=== PATIENT | male | born 1955 | race Caucasian/White ===

== ENCOUNTER → 2016-09-24 | Outpatient (REF) | payer BC ==
[2016-09-24 14:42] LABS: BASOPHILS % (AUTO) 0 % (0-2); EOSINOPHILS # (AUTO) 0.1 10^3uL; EOSINOPHILS % (AUTO) 2 % (0-4); LYMPHOCYTES # (AUTO) 2.1 X10^3; MEAN CORPUSCULAR HGB CONC 34.7 g/dL (31.0-37.0); MEAN CORPUSCULAR VOLUME 96 FL (80-100); MEAN PLATELET VOLUME 11.1 FL (6.0-9.5); MONOCYTES # (AUTO) 0.5 X10^3; MONOCYTES % (AUTO) 8 % (3-11); NEUTROPHILS # (AUTO) 3.2 X10^3; NEUTROPHILS % (AUTO) 54 % (51-67); PLATELET COUNT 91 10^3uL (150-450); WHITE BLOOD COUNT 5.89 10^3uL (4.0-11.0)
[2016-09-24 14:56] LABS: MEAN CORPUSCULAR HEMOGLOBIN 33.3 PG (26.0-34.0)
[2016-09-24 15:00] LABS: ALBUMIN 4.2 g/dL (3.4-5.0); ANION GAP 14.2 MEQ/L (3-15); CALCULATED IONIZED CALCIUM 3.7 mg/dL (3.8-4.6); TOTAL PROTEIN 7.9 g/dL (6.4-8.5)
== END ==
LOC: LAB 14:24
PROVIDERS: ATTEND Family Medicine
DX: R79.89 Other specified abnormal findings of blood chemistry (principal); D69.59 Other secondary thrombocytopenia; B18.2 Chronic viral hepatitis C; N52.01 Erectile dysfunction due to arterial insufficiency
CPT/HCPCS: 80053; 82105; 84153; 84443; 85025; 85610; 85730

== ENCOUNTER → 2016-09-29 | Outpatient (CLI) | payer BC ==
--- NOTE | 2016-09-29 11:53 | Diagnostic Imaging Report ---
PROCEDURE: US Abdomen, limited. TECHNIQUE: Multiple realtime grayscale images were obtained over the abdomen in various projections. INDICATION: Hepatitis C with elevated liver enzymes Liver measures 17 cm in length with an approximately 1 cm echogenic focus in the left lobe which may represent hemangioma. Note is also made of an approximately 1.3 cm hypoechoic focus within the left lobe of the liver which is nonspecific. This could be related to geographic fatty infiltration. No other focal lesion is identified. Gallbladder contains a 1 cm echogenic stone without wall thickening or pericholecystic fluid. There is no evidence of biliary ductal dilatation. The adjacent pancreas and right kidney are unremarkable in appearance. IMPRESSION: Several foci of altered echogenicity involving the left lobe of the liver measure up to approximately 1.3 cm in size. There is a hyperechoic focus which may have been present on the exam of 01/02/2015. Nearby, there is also a similar sized hypoechoic focus. These may be related to benign etiology such as focal fatty infiltration and/or cavernous hemangioma. Consideration should be given to contrast-enhanced CT or MRI of the abdomen for evaluation. Dictated by: Dictated on workstation # [id number]
== END ==
LOC: RAD 08:27
PROVIDERS: ATTEND Family Medicine
DX: R79.89 Other specified abnormal findings of blood chemistry (principal); B18.2 Chronic viral hepatitis C; R93.5 Abnormal findings on diagnostic imaging of other abdominal regions, including retroperitoneum
CPT/HCPCS: 76705